=== PATIENT | female | born 1985 | race Caucasian/White ===

== ENCOUNTER 2018-08-15 10:40 | Emergency (ER) | payer BC, OTHER ==
[2018-08-15] MEDS ORDERED: cefTRIAXone\\ROCEPHIN 1 GM VIAL ONE (11:19)
[2018-08-15] MEDS ORDERED: Phenazopyridine HCl 97.5 MG TABLET ONE (11:19)
[2018-08-15] MEDS ORDERED: Lidocaine 1% 20 ML MDV ONE (11:20)
== END 2018-08-15 11:46 | disposition home or self-care (01) ==
LOC: MADERS 10:40
DX: N30.90 Cystitis, unspecified without hematuria (principal); F41.9 Anxiety disorder, unspecified; F17.210 Nicotine dependence, cigarettes, uncomplicated; Z79.899 Other long term (current) drug therapy
CPT/HCPCS: 96372; J0696; J2001